=== PATIENT | female | born 1950 | race Caucasian/White ===

== ENCOUNTER → 2018-04-16 09:13 | Outpatient (CLI) | payer OTHER, SELFPAY ==
--- NOTE | 2018-04-16 | DI.ECHO.S_ITS ---
[facility] +---------+ : : [address] [place] : : : : [id number] : : : : Phone: [phone]+ Echocardiogram Report + + :Name: GIOVANNI STALLWORTH Study Date: 04/16/2018 Height: 62 in : :[facility] Exam Location: [place] Weight: 140 lb : : Gender: Female BSA: 1.6 m2 : :: 1950 Age: 67 yrs BP: 130/62 mmHg: :Reason For Study: DIASTOLIC DYSFUNCTION : :Ordering Physician: Lisy : : Performed By: Nellie Ortega : :Referring: LISY BRO : + + Interpretation Summary The left ventricle is normal in size, wall thickness, and systolic function without any focal wall motion abnormalities. The ejection fraction is estimated to be 60-65%. Diastolic parameters suggest probable normal left ventricular diastolic function and normal filling pressures. The right ventricle is normal in size and function. The right ventricular systolic pressure is estimated to be at least 24 mmHg based on an estimated right atrial pressure of 3 mm Hg. The left atrium is severely dilated. The right atrium is mildly dilated. There is no significant valvular heart disease. The aortic root is normal size. Procedure: A two-dimensional transthoracic echocardiogram with color flow and Doppler was performed. The study quality was technically good. There is no prior echocardiogram noted for this patient. The patient was in normal sinus rhythm during the exam. Left Ventricle: The left ventricle is normal in size, wall thickness, and systolic function without any focal wall motion abnormalities. The ejection fraction is estimated to be 60-65%. Diastolic parameters suggest probable normal left ventricular diastolic function and normal filling pressures. Right Ventricle: The right ventricle is normal in size and function. Atria: The left atrium is severely dilated. The right atrium is mildly dilated. There is no Doppler evidence for an interatrial shunt. Mitral Valve: The mitral valve is normal. There is trace mitral regurgitation. Aortic Valve: The aortic valve is normal in structure and function. There is trace aortic regurgitation. Tricuspid Valve: The tricuspid valve is normal. There is trace tricuspid regurgitation. The right ventricular systolic pressure is estimated to be at least 24 mmHg based on an estimated right atrial pressure of 3 mm Hg. Pulmonic Valve: The pulmonic valve is not well visualized. There is trace pulmonic regurgitation. There is no significant valvular heart disease. Great Vessels: The aortic root is normal size. The ascending aorta is normal in size. The aortic arch is normal in size. The pulmonary is not well visualized. The IVC is of normal diameter and collapses greater than 50% with a sniff. This suggests a low right atrial pressure of 3 mm Hg. Pericardium/ Pleura There is no pericardial effusion. There is no pleural effusion. MMode/2D Measurements & Calculations LVIDd: 4.0 cm LVOT diam: 2.0 cm LVIDs: 2.4 cm Ao root diam: 3.4 cm FS: 39.7 % asc Aorta Diam: 2.9 cm EPSS: 0.15 cm Ao Arch Diam (Prox Trans): 2.6 cm IVSd: 0.79 cm LVPWd: 0.89 cm LV castle. diameter/BSA (cm/m^2): 2.4 LV sys. diameter/BSA (cm/m^2): 1.5 LA A2 area: 26.0 cm2 RA long axis: 5.1 cm LA A4 area: 24.9 cm2 RA area: 19.1 cm2 LA length (vol): 6.1 cm RA vol: 60.6 ml LA vol: 90.6 ml RA : 36.9 ml/m2 LA vol index: 55.2 ml/m2 IVC diam: 1.4 cm RVD1 (basal): 3.5 cm RVD2 (mid): 2.7 cm TAPSE: 2.5 cm Doppler Measurements & Calculations Ao V2 max: 150.7 cm/sec LVOT Max Nishant: 131.1 cm/sec Ao V2 mean: 110.7 cm/sec LV V1 max P.9 mmHg Ao max P.1 mmHg LV V1 VTI: 30.1 cm Ao mean P.3 mmHg EMILIO(I,D): 2.6 cm2 Ao V2 VTI: 35.0 cm EMILIO(V,D): 2.6 cm2 sev ratio: 0.86 EMILIO indexed to BSA (cm^2/m^2): 1.6 MV E max nishant: 71.4 cm/sec TR max nishant: 226.6 cm/sec MV A max nishant: 62.4 cm/sec TR max P.5 mmHg MV E/A: 1.1 PA V2 max: 77.9 cm/sec Med Peak E' Nishant: 8.9 cm/sec PA V2 mean: 51.9 cm/sec E/E' med: 8.0 PA mean P.3 mmHg Lat Peak E' Nishant: 9.7 cm/sec PA pr(Accel): 9.1 mmHg E/E' lat: 7.4 E/e' average: 7.7 MV dec time: 0.29 sec Reading Physician:DEQUAN
== END ==
PROVIDERS: PCP Family Medicine; Visit Provider Family Medicine
DX: I51.9 Heart disease, unspecified (principal)
CPT/HCPCS: 93306

== ENCOUNTER → 2020-11-16 15:16 | Outpatient (CLI) | payer MEDICARE, SELFPAY ==
--- NOTE | 2020-11-16 | DI.NM.S_ITS ---
PROCEDURE: NM EXERCISE TREADMILL NON NUC COMPARISON: None. INDICATIONS: Transient cerebral ischemic attack, unspecified FINDINGS: The patient exercised for 6 minutes and 0 seconds, reaching 86% of maximum predicted heart rate and 6.1 METS (LUIS CARLOS -8%). Appropriate BP response to exercise. No angina during the study. No ischemic ST changes. IMPRESSION: Low risk, normal treadmill ECG only stress test with above average exercise capacity (LUIS CARLOS -8%) and no anginal symptoms. Dictated by: Melissa Abarca MD on 11/19/2020 at 12:16 Approved by: Melissa Abarca MD on 11/19/2020 at 12:18
== END ==
PROVIDERS: PCP Family Medicine; Referring Provider Family Medicine; Visit Provider Family Medicine
DX: G45.9 Transient cerebral ischemic attack, unspecified (principal); R06.02 Shortness of breath; I10 Essential (primary) hypertension; Z86.73 Personal history of transient ischemic attack (TIA), and cerebral infarction without residual deficits
CPT/HCPCS: 93017

== ENCOUNTER → 2023-01-12 12:45 | Outpatient (CLI) | payer MEDICARE, SELFPAY ==
--- NOTE | 2023-01-12 | DI.MRI.S_ITS ---
PROCEDURE: MR LUMBAR SPINE WO CON INDICATIONS: Radiculopathy, lumbar region TECHNIQUE: Noncontrast sagittal T1 spin echo and T2 fast echo, sagittal STIR, and T2 fast spin echo through the lumbar spine. In cases with scoliosis, additional coronal T2 fast spin echo may be performed. COMPARISON: [facility], CR, XR LUMBAR SPINE 2 OR 3 VIEWS, 12/17/2022, 10:50. FINDINGS: Image quality: Excellent. Alignment and Curvature: Anterolisthesis of L4 on L5 measures 6 mm. Bone Marrow: Marrow is of normal overall signal. No acute vertebral body compression fractures. Old moderate T12 compression. Posterior bony retropulsion superiorly without canal stenosis. Spinal Cord: Conus medullaris terminates at the L1 level. Visualized cord demonstrates normal signal and size. Paraspinous Soft Tissues: No paravertebral masses. T12-L1: Mild facet hypertrophy. No canal stenosis or foraminal stenosis. L1-L2: Disc bulge. Facet and ligament hypertrophy. No canal stenosis or foraminal stenosis. L2-L3: Disc bulge. Facet hypertrophy. No canal stenosis. Vqaa-ll-rmyhzmwa bilateral foraminal stenosis. L3-L4: Disc bulge. Facet and ligament hypertrophy. Borderline canal stenosis. Atok-yo-wzzwfrvy bilateral foraminal stenosis. L4-L5: Prominent bilateral facet hypertrophy. 6 mm anterolisthesis of L4 on L5. Posterior disc bulge. Moderate canal stenosis. Moderate to severe right foraminal narrowing and moderate left foraminal narrowing with a degree of right foraminal L4 nerve root impingement. L5-S1: Disc bulge. Facet hypertrophy. No canal stenosis or significant foraminal stenosis. IMPRESSION: 1. The level of most significant findings is L4-L5. There is prominent bilateral facet hypertrophy and anterolisthesis of L4 on L5. There is moderate canal stenosis. There is moderate to severe right foraminal narrowing and moderate left foraminal narrowing. 2. Multilevel facet arthropathy. Dictated by: Fletcher Latham M.D. on 01/12/2023 at 15:58 Approved by: Fletcher Latham M.D. on 01/12/2023 at 16:03
== END ==
PROVIDERS: PCP Family Medicine; Referring Provider Orthopaedic Surgery; Visit Provider Orthopaedic Surgery
DX: M47.26 Other spondylosis with radiculopathy, lumbar region; M47.27 Other spondylosis with radiculopathy, lumbosacral region; M48.061 Spinal stenosis, lumbar region without neurogenic claudication; M43.16 Spondylolisthesis, lumbar region
CPT/HCPCS: 72148